=== PATIENT | male | born 1970 | race Caucasian/White ===

== ENCOUNTER 2017-05-01 22:29 | Inpatient (IN) | payer MEDICAID ==
[~2017-05-01] VITALS: Ht 185.4 cm; Wt 101.0 kg
[~2017-05-01 22:29] MED LIST: RIVA20TA PO
[2017-05-01] MEDS ORDERED: MORPHINE SULFATE 4 MG/ML, 1ML ONE (23:57)
[2017-05-01] MEDS ORDERED: ONDANSETRON 2MG/ML, 2ML ONE (23:57)
[2017-05-02] MEDS ORDERED: SODIUM CHLORIDE 0.9% 1,000ML IVBOLUS ONE
[2017-05-02] MEDS ORDERED: VANCOMYCIN PER PHARMACY MC ONE
[2017-05-02] MEDS ORDERED: MORPHINE SULFATE 4 MG/ML, 1ML IV PRN
[2017-05-02] MEDS ORDERED: AMPICILLIN/SULBACTAM 3 GM in SODIUM CHLORIDE 0.9% 100 ML IVPB ONE
[2017-05-02] MEDS ORDERED: SODIUM CHLORIDE FLUSH 10ML SYR IVF ONE
[2017-05-02] MEDS ORDERED: ONDANSETRON 2MG/ML, 2ML IVPush ONE
[2017-05-02] MEDS ORDERED: WARF10TA PO (00:15)
[2017-05-02] MEDS ORDERED: VANCOMYCIN 2,500 MG in SODIUM CHLORIDE 0.9% 500 ML IV ONE (00:30)
[2017-05-02 00:53] LABS: ASPARTATE AMINO TRANSFERASE 12 U/L (15-37); BLOOD UREA NITROGEN 11 mg/dL (7-18)
[2017-05-02] MEDS ORDERED: ENOXAPARIN 100 MG/ML SQ ONE (02:00)
[2017-05-02] MEDS ORDERED: GUAIFENESIN/DM 200-20MG, 10ML UDC PO PRN (03:00)
[2017-05-02] MEDS ORDERED: ONDANSETRON 2MG/ML, 2ML IVPush PRN (03:00)
[2017-05-02] MEDS ORDERED: morphine SULFATE 10 MG/ML, 1ML IVPush PRN (03:00)
[2017-05-02] MEDS ORDERED: DOCUSATE 100 MG CAPSULE PO PRN (03:00)
[2017-05-02 04:04] VITALS: BP 132/87
[2017-05-02] MEDS: CEFTAROLINE 600 MG in SODIUM CHLORIDE 0.9% 100 ML IV SCH ×2 (05:45→16:54)
[2017-05-02] MEDS ORDERED: OMNIPAQUE 350 MG/ML, 100ML BOTTLE ONE (06:45)
[2017-05-02 07:18] VITALS: BP 125/79
[2017-05-02] MEDS: FAMOTIDINE 20 MG TABLET PO SCH ×2 (08:20→20:46)
[2017-05-02] MEDS: SODIUM CHLORIDE FLUSH 3ML SYRINGE IVF SCH ×2 (08:20→20:46)
[2017-05-02] MEDS: HYDROcodone/APAP 5/325 TABLET PO PRN ×2 (08:20→14:57)
[2017-05-02] MEDS ORDERED: WARFARIN 10 MG TABLET PO-COUM SCH ×2 (09:00→18:00)
[2017-05-02 11:50] LABS: DAU SCREEN DISCLAIMER
[2017-05-02] MEDS ORDERED: ENOXAPARIN 100 MG/ML SQ SCH (13:00)
[2017-05-02 13:54] VITALS: BP 130/85
[2017-05-02] MEDS: ENOXAPARIN 100 MG/ML SQ SCH (14:57)
[2017-05-02 19:17] VITALS: BP 142/87
[2017-05-03] MEDS: ENOXAPARIN 100 MG/ML SQ SCH ×2 (00:53→12:44)
[2017-05-03 01:56] VITALS: BP 133/88
[2017-05-03] MEDS: CEFTAROLINE 600 MG in SODIUM CHLORIDE 0.9% 100 ML IV SCH ×2 (05:26→17:16)
[2017-05-03 05:38] LABS: BLOOD UREA NITROGEN 14 mg/dL (7-18)
[2017-05-03 08:11] VITALS: BP 153/103
[2017-05-03] MEDS: SODIUM CHLORIDE FLUSH 3ML SYRINGE IVF SCH ×2 (08:52→19:59)
[2017-05-03] MEDS: FAMOTIDINE 20 MG TABLET PO SCH ×2 (08:52→19:59)
[2017-05-03] MEDS: HYDROcodone/APAP 5/325 TABLET PO PRN ×3 (08:52→17:17)
[2017-05-03] MEDS ORDERED: ONDANSETRON 2MG/ML, 2ML IVPush PRN (16:00)
[2017-05-03] MEDS ORDERED: morphine SULFATE 10 MG/ML, 1ML IVPush PRN (16:00)
[2017-05-03 16:25] VITALS: BP 135/88
[2017-05-03] MEDS ORDERED: WARFARIN 10 MG TABLET PO-COUM SCH (18:00)
[2017-05-03 19:06] VITALS: BP 133/82
[2017-05-04] MEDS ORDERED: DIPHENHYDRAMINE 25 MG CAPSULE ONE (01:14)
[2017-05-04] MEDS: DIPHENHYDRAMINE 25 MG CAPSULE PO PRN (01:17)
[2017-05-04] MEDS: ENOXAPARIN 100 MG/ML SQ SCH ×2 (01:18→13:00)
[2017-05-04 01:57] VITALS: BP 154/95
[2017-05-04 05:15] LABS: BLOOD UREA NITROGEN 14 mg/dL (7-18)
[2017-05-04] MEDS: CEFTAROLINE 600 MG in SODIUM CHLORIDE 0.9% 100 ML IV SCH ×2 (05:30→17:00)
[2017-05-04 06:55] VITALS: BP 139/85
[2017-05-04] MEDS: SODIUM CHLORIDE FLUSH 3ML SYRINGE IVF SCH ×2 (09:00→21:00)
[2017-05-04] MEDS: FAMOTIDINE 20 MG TABLET PO SCH ×2 (09:00→21:00)
[2017-05-04 13:10] VITALS: BP 141/96
[2017-05-04 18:37] VITALS: BP 147/85
[2017-05-05] MEDS: ENOXAPARIN 100 MG/ML SQ SCH ×2 (01:00→17:03)
[2017-05-05 01:12] VITALS: BP 138/88
[2017-05-05] MEDS: CEFTAROLINE 600 MG in SODIUM CHLORIDE 0.9% 100 ML IV SCH ×2 (05:00→17:02)
[2017-05-05 07:35] VITALS: BP 134/85
[2017-05-05] MEDS: FAMOTIDINE 20 MG TABLET PO SCH ×2 (09:00→19:34)
[2017-05-05] MEDS: SODIUM CHLORIDE FLUSH 3ML SYRINGE IVF SCH ×2 (09:00→19:36)
[2017-05-05 14:39] VITALS: BP 145/98
[2017-05-05] MEDS ORDERED: WARFARIN 10 MG TABLET PO-COUM ONE (18:00)
[2017-05-05] MEDS: HYDROcodone/APAP 5/325 TABLET PO PRN (19:34)
[2017-05-05 19:42] VITALS: BP 148/94
[2017-05-06 01:28] VITALS: BP 164/99
[2017-05-06] MEDS: CEFTAROLINE 600 MG in SODIUM CHLORIDE 0.9% 100 ML IV SCH ×2 (05:05→17:10)
[2017-05-06] MEDS: ENOXAPARIN 100 MG/ML SQ SCH ×2 (05:05→17:32)
[2017-05-06 06:41] LABS: BLOOD UREA NITROGEN 14 mg/dL (7-18)
[2017-05-06 07:04] VITALS: BP 142/95
[2017-05-06] MEDS: SODIUM CHLORIDE FLUSH 3ML SYRINGE IVF SCH ×2 (09:00→19:55)
[2017-05-06] MEDS: HYDROcodone/APAP 5/325 TABLET PO PRN (11:36)
[2017-05-06 12:55] VITALS: BP 152/99
[2017-05-06] MEDS: DIPHENHYDRAMINE 25 MG CAPSULE PO PRN (17:33)
[2017-05-06] MEDS ORDERED: WARFARIN 10 MG TABLET PO-COUM ONE (18:00)
[2017-05-06 19:45] VITALS: BP 150/96
[2017-05-07 01:27] VITALS: BP 141/94
[2017-05-07] MEDS: CEFTAROLINE 600 MG in SODIUM CHLORIDE 0.9% 100 ML IV SCH (04:38)
[2017-05-07] MEDS: ENOXAPARIN 100 MG/ML SQ SCH (04:38)
[2017-05-07 06:59] VITALS: BP 155/104
[2017-05-07 07:06] LABS: ASPARTATE AMINO TRANSFERASE 15 U/L (15-37); BLOOD UREA NITROGEN 17 mg/dL (7-18); C-REACTIVE PROTEIN, QUANT 0.69 mg/dL (0.02-0.49)
[2017-05-07 08:35] LABS: DAU SCREEN DISCLAIMER
[2017-05-07] MEDS: SODIUM CHLORIDE FLUSH 3ML SYRINGE IVF SCH (09:00)
[2017-05-07] MEDS ORDERED: AMLODIPINE 5 MG TABLET PO SCH (09:00)
[2017-05-07 13:33] VITALS: BP 151/97
[2017-05-07 14:55] LABS: ASPARTATE AMINO TRANSFERASE 10 U/L (15-37); BLOOD UREA NITROGEN 12 mg/dL (7-18)
[2017-05-07] MEDS ORDERED: LINEZOLID PMX 600MG/300ML 300 ML IV SCH (16:00)
[2017-05-07] MEDS ORDERED: WARFARIN 10 MG TABLET PO-COUM ONE (18:00)
== END 2017-05-07 15:35 | disposition left against medical advice (07) | DRG 300 ==
LOC: ED 23:59 → EDIP 05-02 02:13 → 3NE 05-02 03:43
PROVIDERS: ADMIT Internal Medicine; ATTEND Internal Medicine
DX: I82.433 Acute embolism and thrombosis of popliteal vein, bilateral (principal); L03.116 Cellulitis of left lower limb; L03.115 Cellulitis of right lower limb; I82.411 Acute embolism and thrombosis of right femoral vein; F19.10 Other psychoactive substance abuse, uncomplicated; B95.62 Methicillin resistant Staphylococcus aureus infection as the cause of diseases classified elsewhere; F17.210 Nicotine dependence, cigarettes, uncomplicated; I10 Essential (primary) hypertension; Z86.711 Personal history of pulmonary embolism; Z82.49 Family history of ischemic heart disease and other diseases of the circulatory system
CPT/HCPCS: 36415; 71275; 80048; 80053; 80307; 82040; 83036; 83735; 84443; 85025; 85610; 85651; 85730; 86140; 87040; 87070; 87077; 87147; 87186; 87205; 93922; 93970; 96361; 96365; 96366; 96368; 96372; 96375; J0295; J0712; J1650; J2405; J3370; Q9967; 29580-50; J7030; J7040; Q0163